=== PATIENT | male | born 1995 | race Asian ===

== ENCOUNTER → 2016-11-04 | Outpatient (CLI) | payer BC ==
[2016-11-04 10:07] LABS: BASOPHILS % 0.6 % (0.0-2.0); EOSINOPHILS % 1.1 % (0.0-5.0); HEMATOCRIT. 48.8 % (42.0-52.0); HEMOGLOBIN. 16.4 g/dL (14.0-18.0); LYMPHOCYTES % 25.9 % (20.0-50.0); MEAN CORPUSCULAR HGB CONC 33.6 g/dL (31.0-37.0); MEAN CORPUSCULAR VOLUME 89.5 fL (80.0-94.0); MEAN PLATELET VOLUME 7.4 fl (7.4-10.4); MONOCYTES % 9.8 % (2.0-8.0); NEUTROPHILS % 62.6 % (40.0-76.0); PLATELET 245 x1000/uL (130-400); RED BLOOD CELL COUNT 5.45 mill/uL (4.7-6.1); RED CELL DISTRIBUTION WIDTH 13.3 % (11.6-14.6); WHITE BLOOD COUNT 5.4 x1000/uL (4.5-11.0)
[2016-11-04 11:04] LABS: ALANINE AMINOTRANSFERASE 30 IU/L (13-61); ALBUMIN 3.9 g/dL (3.4-5.0); ANION GAP 11; CALCIUM 8.7 mg/dL (8.5-10.1); CARBON DIOXIDE 31 mEq/L (21-32); CHLORIDE 104 mEq/L (98-107); HDL CHOLESTEROL 76 mg/dL (40-59); INDEX HEMOLYSI 1 (1-3); INDEX ICTERIC 1 (1-4); INDEX LIPEMIC 1 (1-3); LDL CHOLESTEROL 83 mg/dL (5-100); T4 FREE 1.12 ng/dL (0.76-1.46); TRIGLYCERIDE 93 mg/dL (0-150); UREA NITROGEN BLOOD 12 mg/dL (7-21); eGFR > 60 mL/min (>60)
== END | disposition home or self-care (01) ==
LOC: LAB 09:33
PROVIDERS: ATTEND Internal Medicine Endocrinology, Diabetes & Metabolism
DX: F32.9 Major depressive disorder, single episode, unspecified (principal); E55.9 Vitamin D deficiency, unspecified; R73.9 Hyperglycemia, unspecified
CPT/HCPCS: 36415; 80053; 80061; 82306; 83036; 84439; 84443; 85025

== ENCOUNTER → 2017-03-03 | Outpatient (CLI) | payer BC ==
[2017-03-03 08:45] LABS: CLARITY URINE CLEAR (CLEAR); COLOR URINE YELLOW (YELLOW); GLUCOSE URINE NEGATIVE (NEGATIVE); KETONES URINE NEGATIVE (NEGATIVE); LEUKOCYTE ESTERASE URINE NEGATIVE (NEGATIVE); NITRITE URINE NEGATIVE (NEGATIVE); OCCULT BLOOD URINE NEGATIVE (NEGATIVE); PH URINE 6.5 (4.5-8.0); PROTEIN URINE NEGATIVE (NEGATIVE); SPECIFIC GRAVITY URINE 1.019 (1.005-1.030)
[2017-03-03 08:47] LABS: BASOPHILS % 0.4 % (0.0-2.0); EOSINOPHILS % 0.5 % (0.0-5.0); HEMATOCRIT. 45.3 % (42.0-52.0); HEMOGLOBIN. 15.5 g/dL (14.0-18.0); MEAN CORPUSCULAR HEMOGLOBIN 30.3 pg (28.0-32.0); MEAN CORPUSCULAR VOLUME 88.6 fL (80.0-94.0); MEAN PLATELET VOLUME 7.3 fl (7.4-10.4); MONOCYTES % 7.6 % (2.0-8.0); NEUTROPHILS % 60.5 % (40.0-76.0); PLATELET 243 x1000/uL (130-400); RED BLOOD CELL COUNT 5.11 mill/uL (4.7-6.1); RED CELL DISTRIBUTION WIDTH 13.2 % (11.6-14.6)
[2017-03-03 09:15] LABS: CARBON DIOXIDE 27 mEq/L (21-32); CHLORIDE 102 mEq/L (98-107)
== END | disposition home or self-care (01) ==
LOC: LAB 08:11
PROVIDERS: ATTEND Internal Medicine Endocrinology, Diabetes & Metabolism
DX: F32.9 Major depressive disorder, single episode, unspecified (principal); E55.9 Vitamin D deficiency, unspecified; R73.9 Hyperglycemia, unspecified; R29.2 Abnormal reflex; N39.8 Other specified disorders of urinary system
CPT/HCPCS: 36415; 80053; 81003; 82306; 83036; 84439; 84443; 85025; 87086

== ENCOUNTER → 2017-06-19 | Outpatient (CLI) | payer BC ==
[2017-06-19 09:14] LABS: BASOPHILS % 0.3 % (0.0-2.0); EOSINOPHILS % 1.5 % (0.0-5.0); HEMATOCRIT. 45.6 % (42.0-52.0); HEMOGLOBIN. 15.6 g/dL (14.0-18.0); LYMPHOCYTES % 27.5 % (20.0-50.0); MEAN CORPUSCULAR HEMOGLOBIN 30.9 pg (28.0-32.0); MEAN CORPUSCULAR VOLUME 90.1 fL (80.0-94.0); MEAN PLATELET VOLUME 7.7 fl (7.4-10.4); NEUTROPHILS % 62.7 % (40.0-76.0); PLATELET 204 x1000/uL (130-400); RED BLOOD CELL COUNT 5.06 mill/uL (4.7-6.1); RED CELL DISTRIBUTION WIDTH 13.3 % (11.6-14.6)
[2017-06-19 09:46] LABS: T4 FREE 1.16 ng/dL (0.76-1.46)
== END | disposition still patient (30) ==
LOC: LAB 08:44
PROVIDERS: ATTEND Internal Medicine Endocrinology, Diabetes & Metabolism
DX: I10 Essential (primary) hypertension (principal); L70.9 Acne, unspecified; Z79.899 Other long term (current) drug therapy
CPT/HCPCS: 36415; 83036; 84439; 84443; 85025; 85651; 86038; 86430

== ENCOUNTER 2017-09-18 09:24 | Emergency (ER) | payer BC ==
[~2017-09-18] VITALS: Ht 182.9 cm; Wt 86.0 kg
[2017-09-18 09:32] VITALS: BP 140/61
[2017-09-18] MEDS ORDERED: IBUP-2030 PO (09:34)
== END 2017-09-18 11:48 | disposition home or self-care (01) ==
LOC: ER 09:53
DX: S93.401A Sprain of unspecified ligament of right ankle, initial encounter (principal); Y93.67 Activity, basketball; Y92.89 Other specified places as the place of occurrence of the external cause; F17.210 Nicotine dependence, cigarettes, uncomplicated; F12.90 Cannabis use, unspecified, uncomplicated
CPT/HCPCS: 73610; 73630; 99284; Z7610

== ENCOUNTER → 2017-10-04 | Outpatient (CLI) | payer BC ==
[~2017-10-04] MED LIST: IBUP-2030 PO
[2017-10-04 09:05] LABS: BASOPHILS % 0.6 % (0.0-2.0); HEMATOCRIT. 45.3 % (42.0-52.0); HEMOGLOBIN. 15.1 g/dL (14.0-18.0); LYMPHOCYTES % 24.9 % (20.0-50.0); MEAN CORPUSCULAR HEMOGLOBIN 29.8 pg (28.0-32.0); MEAN CORPUSCULAR VOLUME 89.5 fL (80.0-94.0); MEAN PLATELET VOLUME 7.9 fl (7.4-10.4); MONOCYTES % 7.5 % (2.0-8.0); PLATELET 238 x1000/uL (130-400); RED BLOOD CELL COUNT 5.07 mill/uL (4.7-6.1); RED CELL DISTRIBUTION WIDTH 13.5 % (11.6-14.6)
[2017-10-04 09:42] LABS: CHLORIDE 105 mEq/L (98-107)
[2017-10-04 09:54] LABS: HDL CHOLESTEROL 47 mg/dL (40-59); LDL CHOLESTEROL 82 mg/dL (5-100); T4 FREE 0.92 ng/dL (0.76-1.46)
== END | disposition home or self-care (01) ==
LOC: MRI 07:37
PROVIDERS: ATTEND Internal Medicine Endocrinology, Diabetes & Metabolism
DX: S93.431A Sprain of tibiofibular ligament of right ankle, initial encounter (principal); M25.471 Effusion, right ankle; L70.8 Other acne; I10 Essential (primary) hypertension; R73.9 Hyperglycemia, unspecified; X58.XXXA Exposure to other specified factors, initial encounter; Y93.89 Activity, other specified; Y92.89 Other specified places as the place of occurrence of the external cause; Y99.8 Other external cause status
CPT/HCPCS: 36415; 73721; 80053; 80061; 82306; 83036; 84439; 84443; 85025

== ENCOUNTER → 2018-02-08 | Outpatient (CLI) | payer BC ==
[2018-02-08 09:35] LABS: BASOPHILS % 0.7 % (0.0-2.0); EOSINOPHILS % 1.6 % (0.0-5.0); HEMATOCRIT. 45.7 % (42.0-52.0); HEMOGLOBIN. 15.4 g/dL (14.0-18.0); LYMPHOCYTES % 32.4 % (20.0-50.0); MEAN CORPUSCULAR HEMOGLOBIN 30.2 pg (28.0-32.0); MEAN CORPUSCULAR VOLUME 89.9 fL (80.0-94.0); MEAN PLATELET VOLUME 7.8 fl (7.4-10.4); MONOCYTES % 8.7 % (2.0-8.0); NEUTROPHILS % 56.6 % (40.0-76.0); PLATELET 234 x1000/uL (130-400); RED BLOOD CELL COUNT 5.09 mill/uL (4.7-6.1)
[2018-02-08 09:47] LABS: CHLORIDE 105 mEq/L (98-107)
[2018-02-08 09:55] LABS: LDL CHOLESTEROL 86 mg/dL (5-100)
[2018-02-08 09:56] LABS: HDL CHOLESTEROL 57 mg/dL (40-59)
[2018-02-08 09:57] LABS: T4 FREE 1.11 ng/dL (0.76-1.46)
== END | disposition home or self-care (01) ==
LOC: LAB 08:49
PROVIDERS: ATTEND Internal Medicine Endocrinology, Diabetes & Metabolism
DX: E55.9 Vitamin D deficiency, unspecified (principal); I10 Essential (primary) hypertension; R73.9 Hyperglycemia, unspecified; F32.9 Major depressive disorder, single episode, unspecified
CPT/HCPCS: 36415; 80053; 80061; 82306; 83036; 84439; 84443; 85025

== ENCOUNTER → 2018-06-29 | Outpatient (CLI) | payer BC ==
[2018-06-29 09:45] LABS: BASOPHILS % 0.4 % (0.0-2.0); EOSINOPHILS % 1.7 % (0.0-5.0); LYMPHOCYTES % 35.1 % (20.0-50.0); MEAN CORPUSCULAR HEMOGLOBIN 30.4 pg (28.0-32.0); MEAN CORPUSCULAR VOLUME 89.2 fL (80.0-94.0); MEAN PLATELET VOLUME 7.2 fl (7.4-10.4); MONOCYTES % 8.4 % (2.0-8.0); NEUTROPHILS % 54.4 % (40.0-76.0); PLATELET 219 x1000/uL (130-400); RED BLOOD CELL COUNT 4.93 mill/uL (4.7-6.1); RED CELL DISTRIBUTION WIDTH 13.3 % (11.6-14.6)
[2018-06-29 10:20] LABS: LDL CHOLESTEROL 93 mg/dL (5-100)
[2018-06-29 10:24] LABS: HDL CHOLESTEROL 69 mg/dL (40-59)
[2018-06-29 10:33] LABS: T4 FREE 0.92 ng/dL (0.76-1.46)
[2018-06-29 10:37] LABS: CHLORIDE 103 mEq/L (98-107)
== END | disposition home or self-care (01) ==
LOC: LAB 09:17
PROVIDERS: ATTEND Internal Medicine Endocrinology, Diabetes & Metabolism
DX: E55.9 Vitamin D deficiency, unspecified (principal); F33.9 Major depressive disorder, recurrent, unspecified; L70.9 Acne, unspecified; R03.0 Elevated blood-pressure reading, without diagnosis of hypertension
CPT/HCPCS: 36415; 80061; 82306; 84439; 84443

== ENCOUNTER → 2018-11-01 | Outpatient (CLI) | payer BC ==
[2018-11-01 09:49] LABS: BASOPHILS % 0.5 % (0.0-2.0); EOSINOPHILS % 1.5 % (0.0-5.0); HEMATOCRIT. 45.6 % (42.0-52.0); HEMOGLOBIN. 15.5 g/dL (14.0-18.0); LYMPHOCYTES % 38.8 % (20.0-50.0); MEAN CORPUSCULAR HEMOGLOBIN 30.2 pg (28.0-32.0); MEAN CORPUSCULAR VOLUME 88.8 fL (80.0-94.0); MEAN PLATELET VOLUME 7.7 fl (7.4-10.4); MONOCYTES % 7.4 % (2.0-8.0); NEUTROPHILS % 51.8 % (40.0-76.0); PLATELET 222 x1000/uL (130-400); RED BLOOD CELL COUNT 5.13 mill/uL (4.7-6.1)
[2018-11-01 10:13] LABS: CHLORIDE 106 mEq/L (98-107)
[2018-11-01 10:29] LABS: LDL CHOLESTEROL 91 mg/dL (5-100)
[2018-11-01 10:30] LABS: T4 FREE 1.18 ng/dL (0.76-1.46)
[2018-11-01 10:31] LABS: HDL CHOLESTEROL 58 mg/dL (40-59)
== END | disposition home or self-care (01) ==
LOC: LAB 08:51
PROVIDERS: ATTEND Internal Medicine Endocrinology, Diabetes & Metabolism
DX: E55.9 Vitamin D deficiency, unspecified (principal); R73.9 Hyperglycemia, unspecified; F32.9 Major depressive disorder, single episode, unspecified
CPT/HCPCS: 36415; 80061; 82306; 83036; 84439; 84443

== ENCOUNTER 2019-02-06 11:41 | Emergency (ER) | payer BC ==
[~2019-02-06] VITALS: Ht 182.9 cm; Wt 82.0 kg
[2019-02-06 12:43] VITALS: BP 133/72
[2019-02-06] MEDS ORDERED: BACITRACIN ZINC OINT UDPKT TOP ONE (14:15)
== END 2019-02-06 14:39 | disposition home or self-care (01) ==
LOC: ER 11:41
DX: L60.0 Ingrowing nail (principal); F12.10 Cannabis abuse, uncomplicated
CPT/HCPCS: 99282

== ENCOUNTER → 2019-02-06 | Outpatient (CLI) | payer BC ==
[2019-02-06 15:12] LABS: BASOPHILS % 0.4 % (0.0-2.0); EOSINOPHILS % 0.6 % (0.0-5.0); HEMATOCRIT. 46.7 % (42.0-52.0); LYMPHOCYTES % 12.5 % (20.0-50.0); MEAN CORPUSCULAR HEMOGLOBIN 30.6 pg (28.0-32.0); MEAN CORPUSCULAR VOLUME 89.3 fL (80.0-94.0); MEAN PLATELET VOLUME 7.2 fl (7.4-10.4); MONOCYTES % 12.9 % (2.0-8.0); NEUTROPHILS % 73.6 % (40.0-76.0); PLATELET 294 x1000/uL (130-400); RED BLOOD CELL COUNT 5.23 mill/uL (4.7-6.1); RED CELL DISTRIBUTION WIDTH 13.2 % (11.6-14.6)
[2019-02-06 15:22] LABS: CHLORIDE 105 mEq/L (98-107)
[2019-02-06 15:29] LABS: LDL CHOLESTEROL 95 mg/dL (5-100)
[2019-02-06 15:30] LABS: HDL CHOLESTEROL 51 mg/dL (40-59)
[2019-02-06 15:31] LABS: T4 FREE 1.06 ng/dL (0.76-1.46)
== END | disposition home or self-care (01) ==
LOC: LAB 14:41
PROVIDERS: ATTEND Internal Medicine Endocrinology, Diabetes & Metabolism
DX: E55.9 Vitamin D deficiency, unspecified (principal); R73.9 Hyperglycemia, unspecified; F32.9 Major depressive disorder, single episode, unspecified
CPT/HCPCS: 36415; 80061; 82306; 83036; 84439; 84443

== ENCOUNTER → 2019-05-09 | Outpatient (CLI) | payer BC ==
[2019-05-09 10:25] LABS: BASOPHILS % 0.4 % (0.0-2.0); EOSINOPHILS % 1.7 % (0.0-5.0); HEMOGLOBIN. 15.3 g/dL (14.0-18.0); LYMPHOCYTES % 25.1 % (20.0-50.0); MEAN CORPUSCULAR VOLUME 90.8 fL (80.0-94.0); MEAN PLATELET VOLUME 7.9 fl (7.4-10.4); MONOCYTES % 8.2 % (2.0-8.0); NEUTROPHILS % 64.6 % (40.0-76.0); PLATELET 229 x1000/uL (130-400); RED BLOOD CELL COUNT 4.95 mill/uL (4.7-6.1); RED CELL DISTRIBUTION WIDTH 13.2 % (11.6-14.6)
[2019-05-10 08:07] LABS: A/G RATIO 1.2 (0.7-1.7); ALBUMIN 3.7 g/dL (2.9-4.4); ALPHA-1-GLOBULIN 0.2 g/dL (0.0-0.4); ALPHA-2-GLOBULIN 0.8 g/dL (0.4-1.0); BETA GLOBULIN 1.1 g/dL (0.7-1.3); M-SPIKE Not Observed g/dL (Not Observed); TOTAL PROTEIN SERUM 6.7 g/dL (6.0-8.5)
== END | disposition home or self-care (01) ==
LOC: LAB 09:22
PROVIDERS: ATTEND Internal Medicine Endocrinology, Diabetes & Metabolism
DX: E88.09 Other disorders of plasma-protein metabolism, not elsewhere classified (principal)
CPT/HCPCS: 36415; 84155; 84165; 84550

== ENCOUNTER → 2019-08-01 | Outpatient (CLI) | payer BC | END | disposition home or self-care (01) | LOC: MRI 08:28 | PROVIDERS: ATTEND Psychiatry & Neurology Neurology | DX: M47.812 Spondylosis without myelopathy or radiculopathy, cervical region (principal); M48.02 Spinal stenosis, cervical region; M48.061 Spinal stenosis, lumbar region without neurogenic claudication; M51.27 Other intervertebral disc displacement, lumbosacral region; J32.9 Chronic sinusitis, unspecified | CPT/HCPCS: 70551; 72141; 72148 ==

== ENCOUNTER → 2019-09-16 | Outpatient (CLI) | payer BC ==
[2019-09-16 10:05] LABS: BASOPHILS % 0.3 % (0.0-2.0); EOSINOPHILS % 1.7 % (0.0-5.0); HEMOGLOBIN. 16.2 g/dL (14.0-18.0); LYMPHOCYTES % 35.5 % (20.0-50.0); MEAN CORPUSCULAR HEMOGLOBIN 31.6 pg (28.0-32.0); MEAN CORPUSCULAR VOLUME 91.6 fL (80.0-94.0); MEAN PLATELET VOLUME 7.2 fl (7.4-10.4); MONOCYTES % 10.1 % (2.0-8.0); NEUTROPHILS % 52.4 % (40.0-76.0); PLATELET 264 x1000/uL (130-400); RED BLOOD CELL COUNT 5.13 mill/uL (4.7-6.1); RED CELL DISTRIBUTION WIDTH 13.8 % (11.6-14.6)
[2019-09-16 10:30] LABS: CHLORIDE 107 mEq/L (98-107)
[2019-09-16 10:35] LABS: C REACTIVE PROTEIN QUANT 0.2 mg/L (0.0-3.0)
[2019-09-16 10:36] LABS: LDL CHOLESTEROL 69 mg/dL (5-100)
[2019-09-16 10:38] LABS: HDL CHOLESTEROL 71 mg/dL (40-59)
[2019-09-17 09:09] LABS: VITAMIN D 25-OH 20.9 ng/mL (30.0-100.0)
[2019-09-18 09:06] LABS: ANTI-NUCLEAR ANTIBODIES DIRECT Negative (Negative)
== END | disposition home or self-care (01) ==
LOC: LAB 09:32
PROVIDERS: ATTEND Internal Medicine Endocrinology, Diabetes & Metabolism
DX: I10 Essential (primary) hypertension (principal); R73.9 Hyperglycemia, unspecified; F33.9 Major depressive disorder, recurrent, unspecified
CPT/HCPCS: 36415; 80053; 80061; 82306; 82607; 82746; 83036; 83921; 84443; 85025; 85651; 86038; 86140; 86430

== ENCOUNTER → 2019-12-10 | Outpatient (CLI) | payer BC ==
[2019-12-10 09:34] LABS: CHLORIDE 104 mEq/L (98-107)
[2019-12-10 09:40] LABS: LDL CHOLESTEROL 98 mg/dL (5-100)
[2019-12-10 09:41] LABS: HDL CHOLESTEROL 69 mg/dL (40-59)
[2019-12-10 09:42] LABS: BASOPHILS % 0.4 % (0.0-2.0); EOSINOPHILS % 0.8 % (0.0-5.0); HEMATOCRIT. 48.6 % (42.0-52.0); HEMOGLOBIN. 16.7 g/dL (14.0-18.0); LYMPHOCYTES % 28.1 % (20.0-50.0); MEAN CORPUSCULAR HEMOGLOBIN 31.1 pg (28.0-32.0); MEAN CORPUSCULAR VOLUME 90.4 fL (80.0-94.0); MEAN PLATELET VOLUME 7.3 fl (7.4-10.4); MONOCYTES % 10.2 % (2.0-8.0); NEUTROPHILS % 60.5 % (40.0-76.0); PLATELET 299 x1000/uL (130-400); RED BLOOD CELL COUNT 5.37 mill/uL (4.7-6.1); RED CELL DISTRIBUTION WIDTH 13.2 % (11.6-14.6)
== END | disposition home or self-care (01) ==
LOC: LAB 08:47
PROVIDERS: ATTEND Internal Medicine Endocrinology, Diabetes & Metabolism
DX: E78.5 Hyperlipidemia, unspecified (principal); R73.9 Hyperglycemia, unspecified; E55.9 Vitamin D deficiency, unspecified; F32.9 Major depressive disorder, single episode, unspecified
CPT/HCPCS: 36415; 80053; 80061; 83036; 84443; 85025

== ENCOUNTER → 2020-01-06 | Outpatient (CLI) | payer BC | END | disposition home or self-care (01) | LOC: LAB 08:59 | PROVIDERS: ATTEND Internal Medicine Endocrinology, Diabetes & Metabolism | DX: Z11.59 Encounter for screening for other viral diseases (principal) | CPT/HCPCS: U0003-CS ==

== ENCOUNTER → 2020-01-10 | Outpatient (CLI) | payer BC | END | disposition home or self-care (01) | LOC: US 08:43 | PROVIDERS: ATTEND Internal Medicine Endocrinology, Diabetes & Metabolism | DX: R94.5 Abnormal results of liver function studies (principal) | CPT/HCPCS: 76700 ==

== ENCOUNTER → 2020-03-06 | Outpatient (CLI) | payer BC | END | disposition home or self-care (01) | LOC: MRI 08:35 | PROVIDERS: ATTEND Podiatrist Foot & Ankle Surgery | DX: S93.491A Sprain of other ligament of right ankle, initial encounter (principal); S93.411S Sprain of calcaneofibular ligament of right ankle, sequela; S93.421S Sprain of deltoid ligament of right ankle, sequela; X58.XXXS Exposure to other specified factors, sequela; X58.XXXA Exposure to other specified factors, initial encounter; Y93.89 Activity, other specified; Y92.89 Other specified places as the place of occurrence of the external cause; Y99.8 Other external cause status | CPT/HCPCS: 73721 ==

== ENCOUNTER → 2020-03-13 | Outpatient (CLI) | payer BC ==
[2020-03-13 10:19] LABS: BASOPHILS % 0.4 % (0.0-2.0); EOSINOPHILS % 0.7 % (0.0-5.0); HEMATOCRIT. 46.1 % (42.0-52.0); HEMOGLOBIN. 15.9 g/dL (14.0-18.0); LYMPHOCYTES % 24.2 % (20.0-50.0); MEAN CORPUSCULAR VOLUME 89.8 fL (80.0-94.0); MEAN PLATELET VOLUME 7.3 fl (7.4-10.4); MONOCYTES % 7.6 % (2.0-8.0); NEUTROPHILS % 67.1 % (40.0-76.0); PLATELET 274 x1000/uL (130-400); RED BLOOD CELL COUNT 5.14 mill/uL (4.7-6.1); RED CELL DISTRIBUTION WIDTH 12.9 % (11.6-14.6)
[2020-03-13 10:26] LABS: CHLORIDE 106 mEq/L (98-107)
[2020-03-13 10:35] LABS: LDL CHOLESTEROL 87 mg/dL (5-100)
[2020-03-13 10:36] LABS: HDL CHOLESTEROL 60 mg/dL (40-59); T4 FREE 1.24 ng/dL (0.76-1.46)
[2020-03-14 09:06] LABS: VITAMIN D 25-OH 22.7 ng/mL (30.0-100.0)
[2020-03-17 06:09] LABS: A/G RATIO 1.1 (0.7-1.7); ALBUMIN 3.6 g/dL (2.9-4.4); ALPHA-1-GLOBULIN 0.1 g/dL (0.0-0.4); ALPHA-2-GLOBULIN 0.8 g/dL (0.4-1.0); BETA GLOBULIN 1.2 g/dL (0.7-1.3); GAMMA GLOBULINS 1.2 g/dL (0.4-1.8); GLOBULIN TOTAL 3.3 g/dL (2.2-3.9); M-SPIKE Not Observed g/dL (Not Observed); TOTAL PROTEIN SERUM 6.9 g/dL (6.0-8.5)
== END | disposition home or self-care (01) ==
LOC: LAB 09:17
PROVIDERS: ATTEND Internal Medicine Endocrinology, Diabetes & Metabolism
DX: E78.5 Hyperlipidemia, unspecified (principal); E55.9 Vitamin D deficiency, unspecified; F32.9 Major depressive disorder, single episode, unspecified
CPT/HCPCS: 36415; 80053; 80061; 82306; 83036; 84155; 84165; 84439; 84443; 85025